=== PATIENT | male | born 1975 | race Asian ===

== ENCOUNTER 2019-03-28 11:05 | Emergency (ER) | payer OTHER ==
[~2019-03-28] VITALS: Ht 182.9 cm; Wt 72.6 kg
[2019-03-28 11:19] VITALS: TEMP 98.1
[2019-03-28 12:52] VITALS: BP 133/82
== END 2019-03-28 12:53 | disposition home or self-care (01) ==
LOC: ED 11:05
DX: N34.2 Other urethritis (principal); R30.0 Dysuria
CPT/HCPCS: 81000; 87490; 87590; 96372; 99283; J0696